=== PATIENT | female | born 1980 | race Asian ===

== ENCOUNTER → 2017-04-15 | Outpatient (CLI) | payer OTHER ==
--- NOTE | 2017-04-16 08:58 | RAD ---
DATE: 04/15/2017 EXAM: DIGITAL SCREEN BILAT W/CAD HISTORY: Screening. Positive family history for breast malignancy is noted. COMPARISON: None. This is baseline study This study was interpreted with the benefit of Computerized Aided Detection (CAD). FINDINGS: Breast Density: DENSE The breast Parenchyma is dense, which could reduce the sensitivity of mammography. Breast parenchyma level density D.. No dominant mass is seen in either breast. There are some benign-appearing calcifications in the left breast. No suspect calcifications are seen in either breast. IMPRESSION: Benign findings. Follow-up examination in one year by BI-RADS CATEGORY: 2 BENIGN FINDING(S) RECOMMENDED FOLLOW-UP: 12M 12 MONTH FOLLOW-UP PQRS compliance statement: Patient information was entered into a reminder system with a target due date 04/15/2018 for the next mammogram. Mammography is a sensitive method for finding small breast cancers, but it does not detect them all and is not a substitute for careful clinical examination. A negative mammogram does not negate a clinically suspicious finding and should not result in delay in biopsying a clinically suspicious abnormality. "Our facility is accredited by the [employer] Mammography Program."
== END | disposition home or self-care (01) ==
LOC: MAMMO 14:14
PROVIDERS: ATTEND Obstetrics & Gynecology
DX: Z12.31 Encounter for screening mammogram for malignant neoplasm of breast (principal); Z80.3 Family history of malignant neoplasm of breast
CPT/HCPCS: G0202; 77067

== ENCOUNTER → 2017-04-16 | Outpatient (CLI) | payer OTHER ==
[2017-04-16 08:18] LABS: BASO # 0.1 x10^3/uL (0.0-0.2); BASO % 1 % (0-3); EOS % 1 % (0-3); HEMATOCRIT 29.4 % (36.0-47.0); HEMOGLOBIN 8.8 g/dL (12.0-15.5); LYMPH # 1.5 x10^3/uL (1.0-4.8); LYMPH % 18 % (24-48); MEAN CORPUSCULAR HEMOGLOBIN 20 pg (25-35); MEAN CORPUSCULAR HGB CONC 30 g/dL (31-37); MEAN CORPUSCULAR VOLUME 66 fL (79-100); MONO % 4 % (0-9); NEUT % 76 % (31-73); PLATELET COUNT 335 x10^3/uL (140-400); RED BLOOD COUNT 4.49 x10^6/uL (3.50-5.40); RED CELL DISTRIBUTION WIDTH 17.2 % (11.5-14.5); WHITE BLOOD COUNT 8.8 x10^3/uL (4.0-11.0)
[2017-04-16 08:43] LABS: ALBUMIN 3.9 g/dL (3.4-5.0); ALBUMIN/GLOBULIN RATIO 0.9 (1.0-1.7); CALCIUM 8.9 mg/dL (8.5-10.1); CREATININE 0.7 mg/dL (0.6-1.0); GFR 95.2; POTASSIUM 4.2 mmol/L (3.5-5.1); TOTAL BILIRUBIN 0.2 mg/dL (0.2-1.0); TOTAL PROTEIN 8.1 g/dL (6.4-8.2)
[2017-04-16 08:44] LABS: CHOLESTEROL/HDL RATIO 3.5
[2017-04-16 08:54] LABS: FREE T4 0.85 ng/dL (0.76-1.46)
== END | disposition home or self-care (01) ==
LOC: LAB 06:17
PROVIDERS: ATTEND Nurse Practitioner Family
DX: Z00.01 Encounter for general adult medical examination with abnormal findings (principal); R14.0 Abdominal distension (gaseous); L30.9 Dermatitis, unspecified; Z79.899 Other long term (current) drug therapy
CPT/HCPCS: 36415; 80053; 80061; 82306; 82607; 84439; 84443; 85025

== ENCOUNTER → 2017-04-21 | Outpatient (CLI) | payer OTHER ==
--- NOTE | 2017-04-21 15:59 | RAD ---
Pelvic ultrasound, 04/21/2017: History: Uterine enlargement Transabdominal and transvaginal scans were obtained. The uterus measures 8.9 x 5.5 x 8.0 cm. The central uterine echo complex measures 10 mm in greatest AP dimension. There is a 4.3 cm heterogeneous mass in the right anterolateral aspect of the uterus. A smaller 3.1 cm mass with similar sonographic characteristics is present inferolaterally on the left. The findings are compatible with uterine fibroids. The left ovary is at the upper limits of normal in size. The right ovary was not visualized. No adnexal mass is seen. A small amount of free fluid is present in the pelvis. IMPRESSION: 1. Two uterine masses are identified compatible with fibroids. 2. Small amount of free fluid in the pelvis.
== END | disposition home or self-care (01) ==
LOC: US 14:53 → EDUNIT# 15:00
PROVIDERS: ATTEND Obstetrics & Gynecology
DX: N92.0 Excessive and frequent menstruation with regular cycle (principal); N85.2 Hypertrophy of uterus; D25.9 Leiomyoma of uterus, unspecified
CPT/HCPCS: 76830; 76856

== ENCOUNTER → 2017-12-03 | Outpatient (CLI) | payer OTHER ==
[2017-12-03 10:14] LABS: ADD MAN DIFF? NO
[2017-12-03 10:20] LABS: BASO # 0.1 x10^3/uL (0.0-0.2); BASO % 1 % (0-3); EOS # 0.1 x10^3/uL (0.0-0.7); EOS % 1 % (0-3); HEMATOCRIT 38.1 % (36.0-47.0); HEMOGLOBIN 12.6 g/dL (12.0-15.5); LYMPH # 1.6 x10^3/uL (1.0-4.8); LYMPH % 18 % (24-48); MEAN CORPUSCULAR HEMOGLOBIN 26 pg (25-35); MEAN CORPUSCULAR HGB CONC 33 g/dL (31-37); MEAN CORPUSCULAR VOLUME 77 fL (79-100); MONO # 0.3 x10^3/uL (0.0-1.1); MONO % 4 % (0-9); NEUT % 77 % (31-73); PLATELET COUNT 298 x10^3/uL (140-400); RED BLOOD COUNT 4.95 x10^6/uL (3.50-5.40); RED CELL DISTRIBUTION WIDTH 17.3 % (11.5-14.5); WHITE BLOOD COUNT 9.1 x10^3/uL (4.0-11.0)
[2017-12-03 10:42] LABS: % SAT IRON 12 % (15-34); IRON,SERUM 53 ug/dL (50-170)
[2017-12-03 10:53] LABS: VITAMIN-B12 315 pg/mL (247-911)
== END | disposition home or self-care (01) ==
LOC: LAB 09:54
DX: D50.8 Other iron deficiency anemias (principal); E53.8 Deficiency of other specified B group vitamins; E55.9 Vitamin D deficiency, unspecified
CPT/HCPCS: 36415; 82306; 82607; 83540; 83550; 85025

== ENCOUNTER → 2017-12-03 | Outpatient (CLI) | payer OTHER | END | disposition home or self-care (01) | LOC: KCIC 14:03 | DX: K59.09 Other constipation (principal); R10.84 Generalized abdominal pain | CPT/HCPCS: 74018 ==

== ENCOUNTER → 2017-12-09 | Outpatient (CLI) | payer OTHER | END | disposition home or self-care (01) | LOC: US 15:31 | DX: K59.09 Other constipation (principal) | CPT/HCPCS: 76700 ==

== ENCOUNTER → 2018-05-25 | Outpatient (CLI) | payer OTHER ==
[2018-05-25 15:06] LABS: BASO # 0.1 x10^3/uL (0.0-0.2); BASO % 1 % (0-3); EOS % 1 % (0-3); HEMATOCRIT 35.8 % (36.0-47.0); HEMOGLOBIN 11.7 g/dL (12.0-15.5); LYMPH # 1.7 x10^3/uL (1.0-4.8); LYMPH % 27 % (24-48); MEAN CORPUSCULAR HEMOGLOBIN 25 pg (25-35); MEAN CORPUSCULAR HGB CONC 33 g/dL (31-37); MEAN CORPUSCULAR VOLUME 77 fL (79-100); MONO # 0.3 x10^3/uL (0.0-1.1); MONO % 5 % (0-9); NEUT # 4.3 x10^3uL (1.8-7.7); NEUT % 67 % (31-73); PLATELET COUNT 355 x10^3/uL (140-400); RED BLOOD COUNT 4.68 x10^6/uL (3.50-5.40); RED CELL DISTRIBUTION WIDTH 14.8 % (11.5-14.5); WHITE BLOOD COUNT 6.4 x10^3/uL (4.0-11.0)
[2018-05-25 16:04] LABS: FREE T4 0.97 ng/dL (0.76-1.46); THYROID STIM HORMONE (TSH) 2.324 uIU/mL (0.358-3.74)
[2018-05-25 16:08] LABS: ALBUMIN 3.8 g/dL (3.4-5.0); TOTAL PROTEIN 8.7 g/dL (6.4-8.2)
[2018-05-27 19:16] LABS: ANA INTERP Negative (.)
[2018-05-28 01:13] LABS: ZINC LEVEL 74 ug/dL (56-134)
== END | disposition home or self-care (01) ==
LOC: LAB 14:36
PROVIDERS: ATTEND Dermatology
DX: L98.8 Other specified disorders of the skin and subcutaneous tissue (principal)
CPT/HCPCS: 36415; 82040; 82306; 82607; 82627; 82728; 82746; 84155; 84410; 84439; 84443; 85025; 86038

== ENCOUNTER → 2019-03-14 | Outpatient (CLI) | payer OTHER ==
--- NOTE | 2019-03-14 16:54 | RAD ---
DATE: 03/14/2019 1:28 PM EXAM: MAMMO STEPHANIE SCREENING BILATERAL HISTORY: routine screening evaluation. COMPARISON: 04/15/17 Bilateral CC and MLO views of the breasts were performed. Bilateral breast tomosynthesis was performed in CC and MLO projections. This study was interpreted with the benefit of Computerized Aided Detection (CAD). FINDINGS: Breast Density: HETERO The breast parenchyma Is heterogeneously dense, which could reduce sensitivity of mammography. Breast parenchyma level C The parenchymal pattern appears stable. Benign calcifications are present. No suspicious masses, microcalcifications or architectural distortion is present to suggest malignancy in either breast. The visualized axillae are unremarkable. IMPRESSION: No mammographic evidence of malignancy. BI-RADS CATEGORY: 2 BENIGN FINDING(S) RECOMMENDED FOLLOW-UP: 12M 12 MONTH FOLLOW-UP Annual screening mammography is recommended, unless clinically indicated sooner based on symptoms or change in physical exam. PQRS compliance statement: Patient information was entered into a reminder system with a target due date for the next mammogram. Mammography is a sensitive method for finding small breast cancers, but it does not detect them all and is not a substitute for careful clinical examination. A negative mammogram does not negate a clinically suspicious finding and should not result in delay in biopsying a clinically suspicious abnormality. "Our facility is accredited by the [employer] Mammography Program."
== END | disposition home or self-care (01) ==
LOC: MAMMO 10:28
PROVIDERS: ATTEND Nurse Practitioner Family
DX: Z12.31 Encounter for screening mammogram for malignant neoplasm of breast (principal); N64.89 Other specified disorders of breast
CPT/HCPCS: 77063; 77067

== ENCOUNTER → 2019-04-28 | Outpatient (CLI) | payer OTHER ==
[~2019-04-28] MED LIST: DOCU-109 PO; GABA300C18 PO; HYDR-3164 PO; IBUP-1060 PO; MINO2.5T12 PO; SPIR1TAB2 PO
[2019-04-28 10:17] LABS: BASO # 0.1 x10^3/uL (0.0-0.2); BASO % 1 % (0-3); EOS # 0.1 x10^3/uL (0.0-0.7); EOS % 1 % (0-3); HEMATOCRIT 29.3 % (36.0-47.0); LYMPH # 1.7 x10^3/uL (1.0-4.8); LYMPH % 25 % (24-48); MEAN CORPUSCULAR HEMOGLOBIN 20 pg (25-35); MEAN CORPUSCULAR HGB CONC 31 g/dL (31-37); MEAN CORPUSCULAR VOLUME 65 fL (79-100); MONO # 0.3 x10^3/uL (0.0-1.1); MONO % 4 % (0-9); NEUT # 4.7 x10^3/uL (1.8-7.7); NEUT % 69 % (31-73); PLATELET COUNT 413 x10^3/uL (140-400); RED BLOOD COUNT 4.47 x10^6/uL (3.50-5.40); RED CELL DISTRIBUTION WIDTH 16.8 % (11.5-14.5); WHITE BLOOD COUNT 6.8 x10^3/uL (4.0-11.0)
[2019-04-28 10:36] LABS: THYROID STIM HORMONE (TSH) 1.513 uIU/mL (0.358-3.74)
[2019-04-28 11:06] LABS: ANISOCYTOSIS SLIGHT; MICROCYTOSIS SLIGHT; PLT ESTIMATE INCREASED (ADEQUATE)
== END | disposition home or self-care (01) ==
LOC: LAB 09:47
PROVIDERS: ATTEND Obstetrics & Gynecology
DX: D25.9 Leiomyoma of uterus, unspecified (principal); N93.8 Other specified abnormal uterine and vaginal bleeding
CPT/HCPCS: 36415; 84439; 84443; 85025

== ENCOUNTER 2019-05-04 08:54 | Inpatient (IN) | payer OTHER ==
[2019-05-04] VITALS (7 sets, daily range): BP systolic 118–131; BP diastolic 70–90
[~2019-05-04] VITALS: Ht 162.6 cm; Wt 70.8 kg
[~2019-05-04 08:54] MED LIST changes: -DOCU-109 PO; -GABA300C18 PO; -IBUP-1060 PO; +IV RINGERS,LACTATED 1000ML 1,000 ML IV SCH; +LIDOCAINE 1% PF 2 ML VIAL. ID PRN; -MINO2.5T12 PO; +ONDANSETRON PF 4 MG/2 ML VIAL. IV PRN; +PROCHLORPERAZINE 10 MG/2 ML VIAL. IV PRN; -SPIR1TAB2 PO; +fentaNYL PF VIAL 100 MCG/2 ML VIAL IV PRN
[2019-05-04] MEDS ORDERED: SPIR1TAB2 PO (09:24)
[2019-05-04] MEDS ORDERED: MINO2.5T12 PO (09:26)
[2019-05-04] MEDS ORDERED: LIDOCAINE 2% PF 5 ML VIAL. ONE (09:56)
[2019-05-04] MEDS ORDERED: DEXAMETHASONE SOD PHOS 4 MG/ML VIAL ONE ×2 (09:56→10:39)
[2019-05-04] MEDS ORDERED: ROCURONIUM 50 MG/5 ML VIAL. ONE (09:56)
[2019-05-04] MEDS ORDERED: ONDANSETRON PF 4 MG/2 ML VIAL. ONE (09:56)
[2019-05-04] MEDS ORDERED: PROPOFOL 20 ML IV ONE (09:56)
[2019-05-04 09:57] LABS: BASO # 0.1 x10^3/uL (0.0-0.2); BASO % 1 % (0-3); EOS % 1 % (0-3); HEMATOCRIT 30.2 % (36.0-47.0); HEMOGLOBIN 9.3 g/dL (12.0-15.5); LYMPH # 1.5 x10^3/uL (1.0-4.8); LYMPH % 22 % (24-48); MEAN CORPUSCULAR HEMOGLOBIN 20 pg (25-35); MEAN CORPUSCULAR HGB CONC 31 g/dL (31-37); MEAN CORPUSCULAR VOLUME 66 fL (79-100); MONO # 0.2 x10^3/uL (0.0-1.1); MONO % 3 % (0-9); NEUT # 4.8 x10^3/uL (1.8-7.7); NEUT % 73 % (31-73); PLATELET COUNT 370 x10^3/uL (140-400); RED BLOOD COUNT 4.61 x10^6/uL (3.50-5.40); RED CELL DISTRIBUTION WIDTH 17.3 % (11.5-14.5); WHITE BLOOD COUNT 6.6 x10^3/uL (4.0-11.0)
[2019-05-04] MEDS ORDERED: fentaNYL PF VIAL 100 MCG/2 ML VIAL ONE ×3 (09:57→11:54)
[2019-05-04] MEDS ORDERED: MIDAZOLAM HCL/PF 2 MG/2 ML VIAL. ONE (09:58)
[2019-05-04] MEDS ORDERED: SCOPOLAMINE 1.5MG PATCH. TD ONE (10:00)
[2019-05-04] MEDS ORDERED: KETOROLAC 30 MG/ML VIAL. ONE (10:52)
[2019-05-04] MEDS ORDERED: FAMOTIDINE 20 MG/2 ML VIAL ONE (10:52)
[2019-05-04] MEDS ORDERED: GLYCOPYRROLATE 1 MG/5 ML VIAL. ONE (11:24)
[2019-05-04] MEDS ORDERED: NEOSTIGMINE METHYLSULFATE 5 MG/5 ML SYRINGE. ONE (11:24)
[2019-05-04] MEDS ORDERED: SEVOFLURANE 61 TO 120 MINUTES. IH ONE (11:42)
[2019-05-04] MEDS ORDERED: PROCHLORPERAZINE 10 MG/2 ML VIAL. ONE (11:54)
--- NOTE | 2019-05-04 12:01 | PDOC ---
BRIEF OPERATIVE NOTE Date: May 04, 2019 Pre-Op Diagnosis 1. Menorrhagia 2. Fibroids 3. Dysmenorrhea Post-Op Diagnosis Same Procedure Performed Open Laparotomy Myomectomy Surgeon Dr. Lacey Instructor Weaving Paper Cup Machine Operator: Celesscipriano Anesthesia Type: General Blood Loss 150 ml Specimens Obtained myoma x 3 Findings enlarged fibroid uterus; nml fallopian tubes and ovaries nae Complications none Operative Note see dictation GOPI LACEY Jr, MD May 04, 2019 12:01
[2019-05-04] MEDS ORDERED: PROCHLORPERAZINE 10 MG/2 ML VIAL. IV PRN (12:15)
[2019-05-04] MEDS ORDERED: CALCIUM CARBONATE 500 MG TAB.CHEW PO PRN (12:15)
[2019-05-04] MEDS ORDERED: diphenhydrAMINE 50 MG/ML VIAL IV PRN (12:15)
[2019-05-04] MEDS ORDERED: diphenhydrAMINE HCL 25 MG CAPSULE PO PRN (12:15)
[2019-05-04] MEDS ORDERED: DEXTROSE 50% 25 GM / 50ML DISP.SYRIN. IV PRN (12:15)
[2019-05-04] MEDS ORDERED: ZOLPIDEM 5 MG TABLET. PO PRN (12:15)
[2019-05-04] MEDS ORDERED: 0.9 % SODIUM CHLORIDE 10 ML DISP.SYRIN. IV PRN (12:15)
[2019-05-04] MEDS: fentaNYL PF VIAL 100 MCG/2 ML VIAL IV PRN ×2 (12:27→12:38)
--- NOTE | 2019-05-04 12:27 | OP ---
DATE OF SURGERY: 05/04/2019 PREOPERATIVE DIAGNOSES: 1. Menorrhagia. 2. Fibroids. 3. Dysmenorrhea. POSTOPERATIVE DIAGNOSES: 1. Menorrhagia. 2. Fibroids. 3. Dysmenorrhea. PROCEDURES: Open laparotomy and myomectomy. SURGEON: Gpoi Lacey MD CURING PRESS OPERATOR: Phu. ANESTHESIA: GETA. ESTIMATED BLOOD LOSS: 150 mL. COMPLICATIONS: None. FINDINGS: Enlarged fibroid uterus, normal fallopian tubes, normal ovaries bilaterally. The myomas ranged from 4 cm to 8 cm in size. SUMMARY: A 38-year-old female with long history of menorrhagia, dysmenorrhea, and fibroid uterus, unresponsive to medical treatment. The patient was counseled on risks, benefits and expectations of open laparotomy for myomectomy. The patient voiced clear understanding to proceed. DESCRIPTION OF PROCEDURE: The patient was taken to surgery suite and placed in the dorsal supine position. She was prepped with ChloraPrep and draped in sterile fashion. After adequate anesthesia, a Pfannenstiel skin incision was made with scalpel down to and through the fascia. Fascia was extended laterally using curved Peace scissors. The superior edge of fascia was grasped with two Ángela clamps and dissected free of the abdominal rectus muscles using blunt dissection along with Bovie cautery. The same process took place inferiorly. The peritoneum was grasped with 2 hemostats and entered sharply with Metzenbaum scissors. This incision was extended superiorly as well as inferiorly. The Lennox ring retractor was placed. The uterus was palpated and able to elevate up to the laparotomy incision site. The uterus contained multiple fibroids, the largest was about 8 cm size. The second largest was about 4-5 cm size. Then, a third set of fibroids were about 2 cm size. [place] was used to grasp the round ligament and single tooth tenaculum was used to grasp the largest of the fibroids which was 8 cm fibroid. Bovie cautery was utilized to make a transverse incision across the superior edge of the fibroid, in which the myometrium was peeled away from the fibroid using sharp dissection with Metzenbaum scissors as well as blunt dissection until the fibroid was removed. The fibroid did involve the myometrial layer in which the incision was closed in a double layer fashion using 2-0 Vicryl suture in a running fashion. The second fibroid was the 2 cm size. The fibroid was removed with Kahlil clamps. This was also at the incision site of the first leiomyoma removal, in which she was incorporated in the closure. The third fibroid was about 5 cm size in the left broad ligament in which the left broad ligament was taken down layer by layer using sharp dissection along with Bovie cautery until the fibroid was visualized and shelled out using blunt dissection along with sharp dissection. This was about a 5 cm size fibroid. The left broad ligament was reapproximated and was just adjacent to the uterus and not involved in the uterus and was reapproximated using 2-0 Vicryl suture in a running fashion. The areas were hemostatic. Interceed was placed over the hysterotomy incision that involved the largest myomectomy of 8 cm size. The ovaries and fallopian tubes appeared normal bilaterally. The Lennox ring retractor was removed. The peritoneum was reapproximated using 1 Vicryl suture in running fashion. Fascia was reapproximated using 0 Vicryl suture in running fashion. Skin was reapproximated using 4-0 Vicryl suture in subcuticular manner. The patient tolerated the procedure well and was taken to recovery room in stable condition. Sponge and needle count correct x 3. GOPI LACEY MD DR: FABBY/jaime JOB#: [id number] / [id number]
[2019-05-04] MEDS ORDERED: MORPHINE SULFATE 2 MG/ML VIAL. ONE ×2 (12:45→12:59)
[2019-05-04] MEDS: MORPHINE SULFATE 2 MG/ML VIAL. IV PRN ×4 (12:47→13:19)
[2019-05-04] MEDS ORDERED: HYDROmorphone 2 MG/ML VIAL ONE (13:12)
[2019-05-04] MEDS: HYDROmorphone 2 MG/ML VIAL IV PRN ×4 (13:19→14:05)
[2019-05-04 13:23] LABS: PLT ESTIMATE ADEQUATE (ADEQUATE)
[2019-05-04 13:25] LABS: ANISOCYTOSIS PRESENT; HYPOCHROMIA MARKED; MICROCYTOSIS MARKED
[2019-05-04] MEDS: GABAPENTIN 300 MG CAPSULE. PO SCH ×2 (14:00→21:04)
[2019-05-04] MEDS: KETOROLAC 30 MG/ML VIAL. IV PRN ×2 (15:17→22:05)
[2019-05-04] MEDS: oxyCODONE/APAP 5/325 1 TAB TABLET PO PRN (17:18)
[2019-05-04] MEDS: ONDANSETRON PF 4 MG/2 ML VIAL. IV PRN (18:42)
[2019-05-04] MEDS ORDERED: MORPHINE SULFATE 4 MG/ML VIAL. IM ONE (19:45)
[2019-05-04] MEDS: SIMETHICONE 80 MG TAB.CHEW PO PRN (19:55)
--- NOTE | 2019-05-04 20:09 | NUR ---
6mg morphine administration was administered IV not IM, order should of been for IV, incorrectly entered.
--- NOTE | 2019-05-05 01:25 | NUR ---
05/05/19 at 2209 wrong box checked, pt was awake during rounds.
[2019-05-05] MEDS: KETOROLAC 30 MG/ML VIAL. IV PRN ×3 (04:13→21:56)
[2019-05-05] MEDS: GABAPENTIN 300 MG CAPSULE. PO SCH ×3 (05:53→21:56)
[2019-05-05] MEDS: oxyCODONE/APAP 7.5/325 1 TAB TABLET PO PRN ×3 (05:54→16:23)
[2019-05-05 07:40] LABS: BASO % 0 % (0-3); EOS % 0 % (0-3); HEMATOCRIT 25.9 % (36.0-47.0); HEMOGLOBIN 7.8 g/dL (12.0-15.5); LYMPH # 1.3 x10^3/uL (1.0-4.8); LYMPH % 13 % (24-48); MEAN CORPUSCULAR HEMOGLOBIN 20 pg (25-35); MEAN CORPUSCULAR HGB CONC 30 g/dL (31-37); MEAN CORPUSCULAR VOLUME 66 fL (79-100); MONO # 0.6 x10^3/uL (0.0-1.1); MONO % 6 % (0-9); NEUT # 8.4 x10^3/uL (1.8-7.7); NEUT % 82 % (31-73); PLATELET COUNT 303 x10^3/uL (140-400); RED BLOOD COUNT 3.91 x10^6/uL (3.50-5.40); RED CELL DISTRIBUTION WIDTH 17.2 % (11.5-14.5); WHITE BLOOD COUNT 10.3 x10^3/uL (4.0-11.0)
[2019-05-05 09:47] VITALS: BP 102/58
[2019-05-05] MEDS: ONDANSETRON PF 4 MG/2 ML VIAL. IV PRN (10:42)
[2019-05-05] MEDS: SIMETHICONE 80 MG TAB.CHEW PO PRN (13:13)
--- NOTE | 2019-05-05 15:05 | PDOC ---
SURGICAL PROGRESS NOTE Subjective Pt. feeling well. Pain better controlled. Discussed IV iron treatment for anemia. Vital Signs Vital Signs Date Time Temp Pulse Resp B/P (MAP) Pulse Ox O2 Delivery O2 Flow Rate FiO2 05/05/19 11:45 18 97 Room Air 05/04/19 23:03 98.3 97 122/83 (96) 98.3 97 05/04/19 12:40 10. I&O Intake and Output 05/05/19 07:00 Intake Total 1620 ml Output Total 2050 ml Balance -430 ml Intake Oral 420 ml IV Total 1200 ml Output Urine Total 1900 ml Estimated Blood Loss 150 ml General: Alert, Oriented X3, Cooperative HEENT: Atraumatic Lungs: Clear to auscultation Heart: Regular rate Abdomen: Normal bowel sounds, Soft, No masses, Other (Incision site: clean, dry and intact) Neuro: Normal gait Psych/Mental Status: Mental status NL Labs Laboratory Tests Test 05/04/19 09:08 05/04/19 09:35 05/05/19 06:45 Bedside Urine HCG, Qualitative Hcg negative (Negative) White Blood Count 6.6 x10^3/uL (4.0-11.0) 10.3 x10^3/uL (4.0-11.0) Red Blood Count 4.61 x10^6/uL (3.50-5.40) 3.91 x10^6/uL (3.50-5.40) Hemoglobin 9.3 g/dL (12.0-15.5) 7.8 g/dL (12.0-15.5) Hematocrit 30.2 % (36.0-47.0) 25.9 % (36.0-47.0) Mean Corpuscular Volume 66 fL (79-100) 66 fL (79-100) Mean Corpuscular Hemoglobin 20 pg (25-35) 20 pg (25-35) Mean Corpuscular Hemoglobin Concent 31 g/dL (31-37) 30 g/dL (31-37) Red Cell Distribution Width 17.3 % (11.5-14.5) 17.2 % (11.5-14.5) Platelet Count 370 x10^3/uL (140-400) 303 x10^3/uL (140-400) Neutrophils (%) (Auto) 73 % (31-73) 82 % (31-73) Lymphocytes (%) (Auto) 22 % (24-48) 13 % (24-48) Monocytes (%) (Auto) 3 % (0-9) 6 % (0-9) Eosinophils (%) (Auto) 1 % (0-3) 0 % (0-3) Basophils (%) (Auto) 1 % (0-3) 0 % (0-3) Neutrophils # (Auto) 4.8 x10^3/uL (1.8-7.7) 8.4 x10^3/uL (1.8-7.7) Lymphocytes # (Auto) 1.5 x10^3/uL (1.0-4.8) 1.3 x10^3/uL (1.0-4.8) Monocytes # (Auto) 0.2 x10^3/uL (0.0-1.1) 0.6 x10^3/uL (0.0-1.1) Eosinophils # (Auto) 0.0 x10^3/uL (0.0-0.7) 0.0 x10^3/uL (0.0-0.7) Basophils # (Auto) 0.1 x10^3/uL (0.0-0.2) 0.0 x10^3/uL (0.0-0.2) Platelet Estimate Adequate (ADEQUATE) Large Platelets Few Giant Platelets Occ Hypochromasia Marked Anisocytosis Present Microcytosis Marked Laboratory Tests Test 05/05/19 06:45 White Blood Count 10.3 x10^3/uL (4.0-11.0) Red Blood Count 3.91 x10^6/uL (3.50-5.40) Hemoglobin 7.8 g/dL (12.0-15.5) Hematocrit 25.9 % (36.0-47.0) Mean Corpuscular Volume 66 fL (79-100) Mean Corpuscular Hemoglobin 20 pg (25-35) Mean Corpuscular Hemoglobin Concent 30 g/dL (31-37) Red Cell Distribution Width 17.2 % (11.5-14.5) Platelet Count 303 x10^3/uL (140-400) Neutrophils (%) (Auto) 82 % (31-73) Lymphocytes (%) (Auto) 13 % (24-48) Monocytes (%) (Auto) 6 % (0-9) Eosinophils (%) (Auto) 0 % (0-3) Basophils (%) (Auto) 0 % (0-3) Neutrophils # (Auto) 8.4 x10^3/uL (1.8-7.7) Lymphocytes # (Auto) 1.3 x10^3/uL (1.0-4.8) Monocytes # (Auto) 0.6 x10^3/uL (0.0-1.1) Eosinophils # (Auto) 0.0 x10^3/uL (0.0-0.7) Basophils # (Auto) 0.0 x10^3/uL (0.0-0.2) Assessment/Plan A: POD#1 s/p Open Lap Myomectomy Anemia P: Continue post op care. Increase ambulation. IV iron treatment for anemia. GOPI MAHER Jr, MD May 05, 2019 15:05
[2019-05-05] MEDS ORDERED: IRON SUCROSE COMPLEX 200 MG in IV NORMAL SALINE 100ML 100 ML IV ONE (16:00)
[2019-05-05 20:38] VITALS: BP 99/58
[2019-05-05 23:34] VITALS: BP 99/64
[2019-05-06] MEDS: oxyCODONE/APAP 7.5/325 1 TAB TABLET PO PRN (03:23)
[2019-05-06 03:24] VITALS: BP 105/64
[2019-05-06] MEDS: GABAPENTIN 300 MG CAPSULE. PO SCH ×3 (05:45→21:50)
[2019-05-06 08:00] VITALS: BP 110/70
[2019-05-06] MEDS: ONDANSETRON PF 4 MG/2 ML VIAL. IV PRN ×2 (08:26→17:10)
[2019-05-06] MEDS: oxyCODONE/APAP 5/325 1 TAB TABLET PO PRN ×3 (08:27→17:10)
[2019-05-06] MEDS: FERROUS SULFATE 325 MG TABLET. PO SCH ×2 (09:00→21:00)
--- NOTE | 2019-05-06 09:00 | PDOC ---
SURGICAL PROGRESS NOTE Subjective Pt. doing well per nursing. Pain better controlled. She completed 1 dose venofer and will receive a second dose tomorrow prior to discharge home. Vital Signs Vital Signs Date Time Temp Pulse Resp B/P (MAP) Pulse Ox O2 Delivery O2 Flow Rate FiO2 05/06/19 08:27 96 Room Air 05/06/19 04:33 14 05/06/19 03:24 97.6 76 105/64 (78) 97.6 I&O Intake and Output 05/06/19 07:00 Intake Total 1270 ml Output Total 1200 ml Balance 70 ml Intake Oral 1160 ml IV Total 110 ml Output Urine Total 1200 ml # Voids 2 PATIENT HAS A AGUDELO: No General: Alert, Oriented X3, Cooperative HEENT: Atraumatic Lungs: Clear to auscultation Heart: Regular rate Abdomen: Normal bowel sounds, Soft, No masses, Other (Incision site: intact) Neuro: Normal gait Psych/Mental Status: Mental status NL Labs Laboratory Tests Test 05/04/19 09:08 05/04/19 09:35 05/05/19 06:45 Bedside Urine HCG, Qualitative Hcg negative (Negative) White Blood Count 6.6 x10^3/uL (4.0-11.0) 10.3 x10^3/uL (4.0-11.0) Red Blood Count 4.61 x10^6/uL (3.50-5.40) 3.91 x10^6/uL (3.50-5.40) Hemoglobin 9.3 g/dL (12.0-15.5) 7.8 g/dL (12.0-15.5) Hematocrit 30.2 % (36.0-47.0) 25.9 % (36.0-47.0) Mean Corpuscular Volume 66 fL (79-100) 66 fL (79-100) Mean Corpuscular Hemoglobin 20 pg (25-35) 20 pg (25-35) Mean Corpuscular Hemoglobin Concent 31 g/dL (31-37) 30 g/dL (31-37) Red Cell Distribution Width 17.3 % (11.5-14.5) 17.2 % (11.5-14.5) Platelet Count 370 x10^3/uL (140-400) 303 x10^3/uL (140-400) Neutrophils (%) (Auto) 73 % (31-73) 82 % (31-73) Lymphocytes (%) (Auto) 22 % (24-48) 13 % (24-48) Monocytes (%) (Auto) 3 % (0-9) 6 % (0-9) Eosinophils (%) (Auto) 1 % (0-3) 0 % (0-3) Basophils (%) (Auto) 1 % (0-3) 0 % (0-3) Neutrophils # (Auto) 4.8 x10^3/uL (1.8-7.7) 8.4 x10^3/uL (1.8-7.7) Lymphocytes # (Auto) 1.5 x10^3/uL (1.0-4.8) 1.3 x10^3/uL (1.0-4.8) Monocytes # (Auto) 0.2 x10^3/uL (0.0-1.1) 0.6 x10^3/uL (0.0-1.1) Eosinophils # (Auto) 0.0 x10^3/uL (0.0-0.7) 0.0 x10^3/uL (0.0-0.7) Basophils # (Auto) 0.1 x10^3/uL (0.0-0.2) 0.0 x10^3/uL (0.0-0.2) Platelet Estimate Adequate (ADEQUATE) Large Platelets Few Giant Platelets Occ Hypochromasia Marked Anisocytosis Present Microcytosis Marked Assessment/Plan A: POD#2 s/p Open Lap Myomectomy Anemia P: Continue post op care. GOPI MAHER Jr, MD May 06, 2019 09:00
[2019-05-06 12:00] VITALS: BP 111/68
[2019-05-06] MEDS: SIMETHICONE 80 MG TAB.CHEW PO PRN (13:48)
[2019-05-06 17:17] VITALS: BP 102/67
[2019-05-06] MEDS: ACETAMINOPHEN 500 MG TABLET PO PRN (21:50)
[2019-05-06 22:05] VITALS: BP 108/68
[2019-05-07 04:40] VITALS: BP 114/71
[2019-05-07] MEDS: ACETAMINOPHEN 500 MG TABLET PO PRN (04:40)
[2019-05-07] MEDS: GABAPENTIN 300 MG CAPSULE. PO SCH (06:11)
[2019-05-07] MEDS: FERROUS SULFATE 325 MG TABLET. PO SCH (09:00)
--- NOTE | 2019-05-07 09:17 | PDOC3 ---
Admit Dx: Fibroids, Menorrhagia, Dysmenorrhea D/c Dx: Same Admit Date: 05/04/19 D/c Date: 05/07/19 Procedure: Open Laparotomy Myomectomy Surgeon: Dr. Lacey Senior Radiation Protection Technician: [facility] Course: Pt. underwent open laparotomy for myomectomy. She did well for recovery and progressed to regular diet, ambulation and flatus. Diet: regular D/c F/u: F/u in 1 week. GOPI LACEY Jr, MD May 07, 2019 09:17
[2019-05-07] MEDS ORDERED: DOCU-109 PO (09:19)
[2019-05-07] MEDS ORDERED: IBUP-1060 PO (09:19)
[2019-05-07] MEDS ORDERED: GABA300C18 PO (09:19)
--- NOTE | 2019-05-07 09:20 | DISCH ---
DISCHARGE INSTRUCTIONS Condition on Discharge Condition on Discharge: Stable Activity After Discharge Activity Instructions for Disc: Activity as tolerated Lifting Instructions after Dis: No heavy lifting Driving Instructions after Dis: Do not drive (x 1 week) Diet after Discharge Diet after Discharge: Regular Contacting the DRJacinto after DC Call your doctor for: Concerns you may have Follow-Up Follow up with: Dr. Lacey in 1 week. GOPI LACEY Jr, MD May 07, 2019 09:20
[2019-05-07] MEDS ORDERED: IRON SUCROSE COMPLEX 200 MG in IV NORMAL SALINE 100ML 100 ML IV ONE (10:00)
[2019-05-07] MEDS ORDERED: IBUPROFEN 400 MG TABLET. PO PRN (11:00)
[2019-05-07 11:53] VITALS: BP 121/74
--- NOTE | 2019-05-07 12:10 | NUR ---
Pt. PO Iron non-administered r/t to pt. receiving an iron IV infusion. Will continue to monitor.
[2019-05-07 13:00] VITALS: BP 118/72
--- NOTE | 2019-05-07 13:37 | NUR ---
Discharge Note: [facility] Discharge instructions and discharge home medications reviewed with Patient and a copy given. All questions have been answered and understanding verbalized. The following instructions and handouts were given: Myomectomy and Myomectomy after care. Discontinued lines and drains: 20g IV in left FA removed. Tip intact. No complications. Patient discharged to home with self-care via in private vehicle. Follow up appointments reviewed.
--- NOTE | 2019-05-09 12:07 | PATHOLOGY ---
[facility] Accession Number: [id number] . 01 Material submitted: . uterus - MYOMAS . 01 Clinical history: . Fibroids and dysmenorrhea. . 02 Diagnosis: "Myomas", myomectomy: - Consistent with leiomyomas, largest measuring 7.1 cm grossly. . (CLW:mml; 05/09/2019) [facility] 05/09/2019 0925 Local . 02 Electronically signed: . Cassandra Melendez MD, Pathologist NPI- [id number] . 01 Gross description: . Received in formalin labeled "Low, Mark, myomas" are three donnelly-white soft tissue nodules weighing in aggregate 150 g and measuring 2.1 x 1.3 x 0.8 cm, 5.1 x 4.5 x 3.5 cm, and 7.1 x 6.5 x 4.9 cm. The external surfaces are smooth and the nodules are sectioned to reveal donnelly-white whorled cut surfaces without hemorrhage or necrosis. Life Skills Coordinator Volunteer sections are submitted in cassettes A1-A6, with two sections in each cassette. ([facility]; 05/04/2019) [facility] 05/04/2019 1844 Local . 02 Pathologist provided ICD-10: D25.9 . 02 CPT . 660752 Specimen Comment: A courtesy copy of this report has been sent to [phone], [phone] Specimen Comment: [phone] Specimen Comment: Report sent to / DR GIVNES Performed at: 01 [facility] [address], [place], [place] [id number] MD Jefferson Esparza MD Phone: [phone] Performed at: [address] [facility] [id number] MD Juan Huffman MD Phone: [phone]
== END 2019-05-07 13:20 | disposition home or self-care (01) | DRG 743 ==
LOC: EEVIPCON 08:54 → OPSVCIP 08:54 → 3 NORTH 14:37
PROVIDERS: ADMIT Obstetrics & Gynecology; ATTEND Obstetrics & Gynecology
PROC: 0UB90ZZ Excision of Uterus, Open Approach (ICD-10-PCS; principal; 2019-05-04 10:30)
DX: D25.9 Leiomyoma of uterus, unspecified (principal); D64.9 Anemia, unspecified; N92.0 Excessive and frequent menstruation with regular cycle; N94.6 Dysmenorrhea, unspecified
CPT/HCPCS: 36415; 81025; 85025; 86850; 86900; 86901; 88305; A7015; C1781; J0696; J1100; J1170; J1756; J1885; J2001; J2250; J2270; J2405; J2704; J2710; J3010; J3490; J7120; G0378

== ENCOUNTER → 2021-01-29 | Outpatient (CLI) | payer OTHER ==
[~2021-01-29] MED LIST changes: +DOCU-109 PO; +GABA300C18 PO; +IBUP-1060 PO; -IV RINGERS,LACTATED 1000ML 1,000 ML IV SCH; -LIDOCAINE 1% PF 2 ML VIAL. ID PRN; +MINO2.5T12 PO; -ONDANSETRON PF 4 MG/2 ML VIAL. IV PRN; -PROCHLORPERAZINE 10 MG/2 ML VIAL. IV PRN; +SPIR1TAB2 PO; -fentaNYL PF VIAL 100 MCG/2 ML VIAL IV PRN
[2021-01-29 08:40] LABS: HEMATOCRIT 33.9 % (36.0-47.0); HEMOGLOBIN 10.4 g/dL (12.0-15.5); RED BLOOD COUNT 4.94 x10^6/uL (3.50-5.40); WHITE BLOOD COUNT 7.8 x10^3/uL (4.0-11.0)
[2021-01-29 09:08] LABS: ALBUMIN 3.7 g/dL (3.4-5.0); ALBUMIN/GLOBULIN RATIO 0.8 (1.0-1.7); CALCIUM 8.7 mg/dL (8.5-10.1); CREATININE 0.8 mg/dL (0.6-1.0); GFR 79.9; POTASSIUM 4.3 mmol/L (3.5-5.1); TOTAL BILIRUBIN 0.2 mg/dL (0.2-1.0); TOTAL PROTEIN 8.2 g/dL (6.4-8.2)
[2021-01-29 09:09] LABS: CHOLESTEROL/HDL RATIO 5.3
[2021-01-29 09:15] LABS: FREE T4 0.83 ng/dL (0.76-1.46); THYROID STIM HORMONE (TSH) 2.384 uIU/mL (0.358-3.74)
== END ==
LOC: LAB 08:16
PROVIDERS: ATTEND Nurse Practitioner Family
DX: Z13.9 Encounter for screening, unspecified (principal); E55.9 Vitamin D deficiency, unspecified; D50.9 Iron deficiency anemia, unspecified; L65.9 Nonscarring hair loss, unspecified
CPT/HCPCS: 36415; 80053; 80061; 82306; 82607; 82746; 83540; 83550; 84439; 84443; 85027

== ENCOUNTER 2021-02-11 12:40 | Emergency (ER) | payer OTHER ==
[~2021-02-11] VITALS: Ht 160 cm; Wt 77.3 kg
[2021-02-11 14:08] LABS: BASO # 0.1 x10^3/uL (0.0-0.2); BASO % 1 % (0-3); EOS # 0.1 x10^3/uL (0.0-0.7); EOS % 1 % (0-3); HEMATOCRIT 31.6 % (36.0-47.0); HEMOGLOBIN 9.9 g/dL (12.0-15.5); LYMPH % 22 % (24-48); MEAN CORPUSCULAR HEMOGLOBIN 21 pg (25-35); MEAN CORPUSCULAR HGB CONC 31 g/dL (31-37); MEAN CORPUSCULAR VOLUME 68 fL (79-100); MONO # 0.3 x10^3/uL (0.0-1.1); MONO % 3 % (0-9); NEUT # 6.7 x10^3/uL (1.8-7.7); NEUT % 73 % (31-73); PLATELET COUNT 401 x10^3/uL (140-400); RED BLOOD COUNT 4.63 x10^6/uL (3.50-5.40); RED CELL DISTRIBUTION WIDTH 17.3 % (11.5-14.5); WHITE BLOOD COUNT 9.1 x10^3/uL (4.0-11.0)
[2021-02-11 14:16] LABS: CREATININE 0.8 mg/dL (0.6-1.0); GFR 79.9; POTASSIUM 3.9 mmol/L (3.5-5.1)
--- NOTE | 2021-02-11 14:16 | RAD ---
EXAM: AP View of the chest DATE: 02/11/2021 1:58 PM INDICATION: Reason: Short of breath / Spl. Instructions: / History: COMPARISON: No Prior FINDINGS: The heart is not enlarged. Mediastinal and hilar contours are normal. No focal parenchymal airspace opacity. No pleural effusion or pneumothorax. IMPRESSION: 1. No radiographic evidence for acute cardiopulmonary process. Electronically signed by: Lan Montgomery MD (02/11/2021 2:14 PM) [id number]
--- NOTE | 2021-02-11 14:18 | PHYS DOC ---
Past Medical History Additional Past Medical Histor: fibroids, anemia, Past Surgical History: Other Additional Past Surgical Histo: fibroidectomy General Adult EDM: Chief Complaint: OTHER COMPLAINTS HPI: HPI: Patient is a 40 year old female who presents emergency department chief complaint of worried that her iron deficient anemia is getting worse. Patient states that she was supposed to have an iron infusion today however somehow her appointment was messed up so she decided to come to the emergency department to see if she could get her iron infusion here. Patient denies any other physical complaints or physical concerns. Review of Systems: Review of Systems: 14 body systems of review of systems have been reviewed. See HPI for pertinent positives and negative responses, otherwise all other systems are negative, nonpertinent or noncontributory. Constitutional: Negative except as outlined in HPI above. Skin: Negative except as outlined in HPI above. Eyes: Negative except as outlined in HPI above. HENT: Negative except as outlined in HPI above. Respiratory: Negative except as outlined in HPI above. Cardiovascular: Negative except as outlined in HPI above. GI: Negative except as outlined in HPI above. : Negative except as outlined in HPI above. Musculoskeletal: Negative except as outlined in HPI above. Integument: Negative except as outlined in HPI above. Neurologic: Negative except as outlined in HPI above. Endocrine: Negative except as outlined in HPI above. Lymphatic: Negative except as outlined in HPI above. Psychiatric: Negative except as outlined in HPI above. Heart Score: C/O Chest Pain: No Risk Factors: Risk Factors: DM, Current or recent (<one month) smoker, HTN, HLP, family history of CAD, obesity. Risk Scores: Score 0 - 3: 2.5% MACE over next 6 weeks - Discharge Home Score 4 - 6: 20.3% MACE over next 6 weeks - Admit for Clinical Observation Score 7 - 10: 72.7% MACE over next 6 weeks - Early Invasive Strategies Allergies: Allergies: Allergies Coded Allergies Type Severity Reaction Last Updated Verified No Known Drug Allergies 04/05/19 No Physical Exam: PE: Constitutional: Well developed, well nourished, no acute distress, non-toxic appearance. [] HENT: Normocephalic, atraumatic, bilateral external ears normal, oropharynx moist, no oral exudates, nose normal. [] Eyes: PERRLA, EOMI, conjunctiva normal, no discharge. [] Neck: Normal range of motion, no tenderness, supple, no stridor. [] Cardiovascular:Heart rate regular rhythm, no murmur [] Lungs & Thorax: Bilateral breath sounds clear to auscultation [] Abdomen: Bowel sounds normal, soft, no tenderness, no masses, no pulsatile masses. [] Skin: Warm, dry, no erythema, no rash. [] Back: No tenderness, no CVA tenderness. [] Extremities: No tenderness, no cyanosis, no clubbing, ROM intact, no edema. [] Neurologic: Alert and oriented X 3, normal motor function, normal sensory function, no focal deficits noted. [] Psychologic: Affect normal, judgement normal, mood normal. [] Current Patient Data: Labs: Laboratory Tests Test 02/11/21 13:20 White Blood Count 9.1 x10^3/uL Red Blood Count 4.63 x10^6/uL Hemoglobin 9.9 g/dL Hematocrit 31.6 % Mean Corpuscular Volume 68 fL Mean Corpuscular Hemoglobin 21 pg Mean Corpuscular Hemoglobin Concent 31 g/dL Red Cell Distribution Width 17.3 % Platelet Count 401 x10^3/uL Neutrophils (%) (Auto) 73 % Lymphocytes (%) (Auto) 22 % Monocytes (%) (Auto) 3 % Eosinophils (%) (Auto) 1 % Basophils (%) (Auto) 1 % Neutrophils # (Auto) 6.7 x10^3/uL Lymphocytes # (Auto) 2.0 x10^3/uL Monocytes # (Auto) 0.3 x10^3/uL Eosinophils # (Auto) 0.1 x10^3/uL Basophils # (Auto) 0.1 x10^3/uL Platelet Estimate Increased Large Platelets Few Giant Platelets Occ Hypochromasia Mod Anisocytosis Slight Microcytosis Marked Sodium Level 139 mmol/L Potassium Level 3.9 mmol/L Chloride Level 104 mmol/L Carbon Dioxide Level 25 mmol/L Anion Gap 10 Blood Urea Nitrogen 9 mg/dL Creatinine 0.8 mg/dL Estimated GFR (Cockcroft-Gault) 79.9 BUN/Creatinine Ratio 11 Glucose Level 89 mg/dL Calcium Level 9.0 mg/dL Iron Level 23 ug/dL Total Iron Binding Capacity 496 ug/dL Iron Saturation 5 % Total Bilirubin 0.3 mg/dL Aspartate Amino Transf (AST/SGOT) 13 U/L Alanine Aminotransferase (ALT/SGPT) 18 U/L Alkaline Phosphatase 87 U/L Troponin I Quantitative < 0.017 ng/mL Total Protein 8.2 g/dL Albumin 4.0 g/dL Albumin/Globulin Ratio 1.0 Current Medications Medications (Trade) Dose Ordered Sig/Josafat Route PRN Reason Start Time Stop Time Status Last Admin Dose Admin Sodium Chloride 400 ml @ 400 mls/hr 1X ONCE IV 02/11/21 15:00 02/11/21 14:55 DC Laboratory Tests Test 02/11/21 13:20 White Blood Count 9.1 x10^3/uL (4.0-11.0) Red Blood Count 4.63 x10^6/uL (3.50-5.40) Hemoglobin 9.9 g/dL (12.0-15.5) L Hematocrit 31.6 % (36.0-47.0) L Mean Corpuscular Volume 68 fL (79-100) L Mean Corpuscular Hemoglobin 21 pg (25-35) L Mean Corpuscular Hemoglobin Concent 31 g/dL (31-37) Red Cell Distribution Width 17.3 % (11.5-14.5) H Platelet Count 401 x10^3/uL (140-400) H Neutrophils (%) (Auto) 73 % (31-73) Lymphocytes (%) (Auto) 22 % (24-48) L Monocytes (%) (Auto) 3 % (0-9) Eosinophils (%) (Auto) 1 % (0-3) Basophils (%) (Auto) 1 % (0-3) Neutrophils # (Auto) 6.7 x10^3/uL (1.8-7.7) Lymphocytes # (Auto) 2.0 x10^3/uL (1.0-4.8) Monocytes # (Auto) 0.3 x10^3/uL (0.0-1.1) Eosinophils # (Auto) 0.1 x10^3/uL (0.0-0.7) Basophils # (Auto) 0.1 x10^3/uL (0.0-0.2) Platelet Estimate Pending Sodium Level 139 mmol/L (136-145) Potassium Level 3.9 mmol/L (3.5-5.1) Chloride Level 104 mmol/L (98-107) Carbon Dioxide Level 25 mmol/L (21-32) Anion Gap 10 (6-14) Blood Urea Nitrogen 9 mg/dL (7-20) Creatinine 0.8 mg/dL (0.6-1.0) Estimated GFR (Cockcroft-Gault) 79.9 BUN/Creatinine Ratio 11 (6-20) Glucose Level 89 mg/dL (70-99) Calcium Level 9.0 mg/dL (8.5-10.1) Total Bilirubin Pending Aspartate Amino Transferase (AST) Pending Alanine Aminotransferase (ALT) Pending Alkaline Phosphatase Pending Total Protein Pending Albumin Pending Albumin/Globulin Ratio Pending Laboratory Tests 02/11/21 13:20 Laboratory Tests 02/11/21 13:20 Vital Signs: Vital Signs Date Time Temp Pulse Resp B/P (MAP) Pulse Ox O2 Delivery O2 Flow Rate FiO2 02/11/21 13:05 97.7 79 16 164/103 (87) 100 Room Air 97.7 EKG: EKG: EKG performed at 1411 by ED nursing staff shows a normal sinus rhythm without e ctopy heart rate 75 bpm, NC interval 0.166, QTc interval 0.431, no acute STEMI, no ACS, no acute ischemia appreciated, EKG interpreted by ED attending physician Dr. Soriano. Radiology/Procedures: Radiology/Procedures: [] Course & Med Decision Making: Course & Med Decision Making Pertinent Labs and Imaging studies reviewed. (See chart for details) 40-year-old female, vital signs reviewed, presents emergency department concerning her iron deficiency anemia problems. Will order baseline labs to compare to labs drawn approximately 2 and half weeks ago. Patient amenable to this plan. Patient's lab work shows improvements of her iron deficiency anemia levels. Patient's hemoglobin slightly lower at 9.9. Discussed findings with patient, strict follow-up with primary care for ongoing evaluation and management of her iron deficiency anemia. Patient reports her iron levels must be getting better because of her recent diet change increasing iron rich foods. Patient is amenable to ED discharge planning and wishes to go home. Discussed with the patient all findings and diagnostic testing as well as the need to follow-up with their primary care provider for further evaluation and treatment or return to the ED if any new or worsening symptoms. Strict return precautions were also discussed at length, the patient voiced understanding and agreement with the discharge planning. The patient was nontoxic in appearance, in no apparent distress, and hemodynamically stable at the time of disposition. Dragon Disclaimer: Dragon Disclaimer: This electronic medical record was generated, in whole or in part, using a voice recognition dictation system. Departure Departure Impression: Primary Impression: Iron deficiency anemia Qualified Codes: D50.9 - Iron deficiency anemia, unspecified Disposition: HOME / SELF CARE / HOMELESS Condition: GOOD Referrals: NATALY SHRESTHA APRN (PCP) Patient Instructions: Iron Deficiency Anemia Additional Instructions: You were seen today for symptoms related to your iron deficiency anemia. You had indicated you were trying to secure an appointment for an iron infusion. Your lab work was drawn and evaluated today, in comparison to your previous results from 3 weeks ago, your iron levels seem to be getting better as evidenced by improving numbers in comparison. As we discussed at length, please keep your appointment with your primary care provider as you may require ongoing evaluation of your H&H levels. Please return to the emergency department for worsening symptoms or other concerns. Thank you for visiting our Emergency Department. It was a pleasure taking care of you today in the emergency department and we appreciate you trusting us with your care. If any additional problems come up don't hesitate to return to visit us. Please follow up with your primary care provider so they can plan additional care if needed and know about the problem that you had. If symptoms worsen come back to the Emergency Department. Any concerning symptoms that start such as chest pain, shortness of air, weakness or numbness on one side of the body, running high fevers or any other concerning symptoms return to the ER. EMERGENCY DEPARTMENT GENERAL DISCHARGE INSTRUCTIONS Thank you for coming to [facility] Emergency Department (ED) today and trusting us with you care. We trust that you had a positive experience in our Emergency Department. If you wish to speak to the department management, you may call the Director at [phone]. YOUR FOLLOW UP INSTRUCTIONS ARE FOLLOWS: 1. Do you have a private Doctor? If you do not have a private doctor, please ask for a resource list of physicians or clinics that may be able to assist you with follow up care. 2. The Emergency Physicain has interpreted your x-rays. The X-Ray specialist will also review them. If there is a change in the findings, you will be notified in 48 hours when at all possible. 3. A lab test or culture has been done, your results will be reviewed and you will be notified if you need a change in treatment. ADDITIONAL INSTRUCTIONS AND INFORMATION: 1. Your care today has been supervised by a physician who is specially trained in emergency care. Many problems require more than one evaluation for a complete diagnosis and treatment. We recommend that you schedule your follow up appointment as recommended to ensure complete treatment of you illness or injury. If you are unable to obtain follow up care and continue to have a problem, or if your condition worsens, we recommend that you return to the ED. 2. We are not able to safely determine your condition over the phone nor are we able to give sound medical advice over the phone. For these safety reasons, if you call for medical advice we will ask you to come to the ED for further evaluation. 3. If you have any questions regarding these discharge instructions please call the ED at [phone]. SAFETY INFORMATION: In the interest of safety, wellness, and injury prevention; we encourage you to wear your sealbelt, if you smoke; quite smoking, and we encourage family to use a protective helmet for bicycling and other sporting events that present an increased risk for head injury. IF YOUR SYMPTOMS WORSEN OR NEW SYMPTOMS DEVELOP, OR YOU HAVE CONCERNS ABOUT YOUR CONDITION; OR IF YOUR CONDITION WORSENS WHILE YOU ARE WAITING FOR YOUR FOLLOW UP APPOINTMENT; EITHER CONTACT YOUR PRIMARY CARE DOCTOR, THE PHYSICIAN WHOSE NAME AND NUMBER YOU WERE GIVEN, OR RETURN TO THE ED IMMEDIATELY. DONNA BAEZ APRN Feb 11, 2021 14:18
[2021-02-11 14:22] LABS: TOTAL BILIRUBIN 0.3 mg/dL (0.2-1.0); TOTAL PROTEIN 8.2 g/dL (6.4-8.2)
[2021-02-11 14:47] LABS: ANISOCYTOSIS SLIGHT; HYPOCHROMIA MOD; MICROCYTOSIS MARKED; PLT ESTIMATE INCREASED (ADEQUATE)
[2021-02-11] MEDS ORDERED: IV NORMAL SALINE 500ML BAG 400 ML IV ONE (15:00)
[2021-02-11 15:43] VITALS: BP 134/83
== END 2021-02-11 16:10 | disposition home or self-care (01) ==
LOC: ER 12:40
DX: D50.9 Iron deficiency anemia, unspecified (principal)
CPT/HCPCS: 36415; 71045; 80053; 83540; 83550; 84484; 85025; 93005; 99285-25

== ENCOUNTER → 2021-02-21 | Outpatient (CLI) | payer OTHER ==
[2021-02-11 15:43] VITALS: BP 134/83
[2021-02-21 09:08] LABS: BASO # 0.1 x10^3/uL (0.0-0.2); BASO % 1 % (0-3); EOS # 0.1 x10^3/uL (0.0-0.7); EOS % 1 % (0-3); HEMATOCRIT 29.9 % (36.0-47.0); HEMOGLOBIN 9.3 g/dL (12.0-15.5); LYMPH # 1.2 x10^3/uL (1.0-4.8); LYMPH % 17 % (24-48); MEAN CORPUSCULAR HEMOGLOBIN 21 pg (25-35); MEAN CORPUSCULAR HGB CONC 31 g/dL (31-37); MEAN CORPUSCULAR VOLUME 68 fL (79-100); MONO # 0.3 x10^3/uL (0.0-1.1); MONO % 4 % (0-9); NEUT # 5.3 x10^3/uL (1.8-7.7); NEUT % 78 % (31-73); PLATELET COUNT 276 x10^3/uL (140-400); RED BLOOD COUNT 4.37 x10^6/uL (3.50-5.40); WHITE BLOOD COUNT 6.9 x10^3/uL (4.0-11.0)
[2021-02-21 09:35] LABS: FREE T4 0.81 ng/dL (0.76-1.46); THYROID STIM HORMONE (TSH) 2.239 uIU/mL (0.358-3.74)
[2021-02-21 11:40] LABS: PLT ESTIMATE ADEQUATE (ADEQUATE)
[2021-02-21 11:41] LABS: ANISOCYTOSIS PRESENT; HYPOCHROMIA MOD
[2021-02-21 11:42] LABS: MICROCYTOSIS MARKED
== END ==
LOC: ONCLAB 08:48
PROVIDERS: ATTEND Internal Medicine Hematology & Oncology
DX: D50.0 Iron deficiency anemia secondary to blood loss (chronic) (principal)
CPT/HCPCS: 36415; 82728; 84439; 84443; 85025

== ENCOUNTER → 2021-02-26 | Outpatient (CLI) | payer OTHER ==
[2021-02-11 15:43] VITALS: BP 134/83
[2021-02-28 16:11] LABS: GLIA IGA 2 units (0-19); GLIA IGG 1 units (0-19); TRANSGLUTAMINASE IGA AB <2 U/mL (0-3); TRANSGLUTAMINASE IGG AB 6 U/mL (0-5)
== END ==
LOC: ONCLAB 08:54
PROVIDERS: ATTEND Physician Assistant
DX: D50.0 Iron deficiency anemia secondary to blood loss (chronic) (principal)
CPT/HCPCS: 36415; 83516

== ENCOUNTER → 2021-03-26 | Outpatient (CLI) | payer OTHER ==
[2021-03-26 08:53] LABS: BASO # 0.1 x10^3/uL (0.0-0.2); BASO % 1 % (0-3); EOS % 1 % (0-3); HEMATOCRIT 37.7 % (36.0-47.0); HEMOGLOBIN 12.2 g/dL (12.0-15.5); LYMPH # 1.2 x10^3/uL (1.0-4.8); LYMPH % 17 % (24-48); MEAN CORPUSCULAR HEMOGLOBIN 26 pg (25-35); MEAN CORPUSCULAR HGB CONC 32 g/dL (31-37); MEAN CORPUSCULAR VOLUME 79 fL (79-100); MONO # 0.1 x10^3/uL (0.0-1.1); MONO % 2 % (0-9); NEUT # 5.9 x10^3/uL (1.8-7.7); NEUT % 80 % (31-73); PLATELET COUNT 249 x10^3/uL (140-400); RED BLOOD COUNT 4.76 x10^6/uL (3.50-5.40); RED CELL DISTRIBUTION WIDTH 26.9 % (11.5-14.5); WHITE BLOOD COUNT 7.3 x10^3/uL (4.0-11.0)
[2021-03-26 11:17] LABS: PLT ESTIMATE ADEQUATE (ADEQUATE)
== END ==
LOC: ONCLAB 08:38
PROVIDERS: ATTEND Physician Assistant
DX: D50.0 Iron deficiency anemia secondary to blood loss (chronic) (principal)
CPT/HCPCS: 36415; 82728; 83540; 83550; 85025

== ENCOUNTER → 2021-05-07 | Outpatient (CLI) | payer OTHER ==
[~2021-05-07] MED LIST changes: +LACT1CAP37 PO
[2021-05-07 09:00] LABS: BASO # 0.1 x10^3/uL (0.0-0.2); BASO % 1 % (0-3); EOS # 0.1 x10^3/uL (0.0-0.7); EOS % 1 % (0-3); HEMATOCRIT 38.2 % (36.0-47.0); LYMPH # 1.8 x10^3/uL (1.0-4.8); LYMPH % 23 % (24-48); MEAN CORPUSCULAR HEMOGLOBIN 28 pg (25-35); MEAN CORPUSCULAR HGB CONC 34 g/dL (31-37); MEAN CORPUSCULAR VOLUME 82 fL (79-100); MONO # 0.3 x10^3/uL (0.0-1.1); MONO % 4 % (0-9); NEUT # 5.7 x10^3/uL (1.8-7.7); NEUT % 71 % (31-73); PLATELET COUNT 279 x10^3/uL (140-400); RED BLOOD COUNT 4.67 x10^6/uL (3.50-5.40); RED CELL DISTRIBUTION WIDTH 21.2 % (11.5-14.5)
[2021-05-07 10:18] LABS: PLT ESTIMATE ADEQUATE (ADEQUATE)
[2021-05-07 10:20] LABS: ANISOCYTOSIS PRESENT
== END ==
LOC: ONCLAB 08:39
PROVIDERS: ATTEND Internal Medicine Hematology & Oncology
DX: D50.0 Iron deficiency anemia secondary to blood loss (chronic) (principal)
CPT/HCPCS: 36415; 82728; 83540; 83550; 85025

== ENCOUNTER → 2021-05-15 | Day surgery (SDC) | payer OTHER ==
[~2021-05-15] VITALS: Ht 162.6 cm; Wt 75.4 kg
[~2021-05-15] MED LIST changes: +IV RINGERS,LACTATED 1000ML 1,000 ML IV SCH; +PROPOFOL 10 MG/ML (20ML) VIAL. IV ONE
[2021-05-15 08:37] VITALS: BP 158/101
[2021-05-15 10:18] VITALS: BP 149/81
--- NOTE | 2021-05-20 17:27 | PATHOLOGY ---
[facility] Accession Number: [id number] . 01 Material submitted: . PART A: small bowel - SMALL BOWEL BIOPSY PART B: stomach - GASTRIC ANTRUM BIOPSY PART C: esophagus - DISTAL ESOPHAGUS BIOPSY. Modifiers: distal PART D: ileum - TERMINAL ILEUM BIOPSY PART E: colon - RIGHT COLON BIOPSY. Modifiers: right PART F: colon - LEFT COLON BIOPSY. Modifiers: left . 01 Clinical history: . IRON DEFICIENCY ANEMIA EGD, COLONOSCOPY . 02 Diagnosis: A. Small bowel biopsy: - Duodenal mucosa with focal villous blunting and gastric foveolar metaplasia, consistent with nodular peptic duodenitis. . B. Stomach "antrum", biopsy: - Gastric antral mucosa with chronic active gastritis. - Negative for intestinal metaplasia, dysplasia, and malignancy. - Negative for Helicobacter pylori. - Fragment of benign duodenal tissue with villous blunting and gastric foveolar metaplasia, consistent with nodular peptic duodenitis. . C. Esophagus "distal", biopsy: - Esophageal squamous and gastric cardia mucosa with features of reflux esophagitis. - Negative for intestinal metaplasia, dysplasia, and malignancy. . D. Small bowel "terminal ileum", biopsy: - Ileal mucosa without significant pathologic alteration. . E. Large bowel "right colon", biopsy: - Large bowel mucosa without significant pathologic alteration. . F. Large bowel "left colon", biopsy: - Large bowel mucosa without significant pathologic alteration. . (BENJI:sameera; 05/19/2021) MBR 05/20/2021 1610 Local . 02 Electronically signed: . Radha Gaines MD, Pathologist NPI- [id number] . 01 Gross description: . A. Received in formalin labeled "Mark Low, small bowel biopsy" are multiple donnelly-brown soft tissue fragments measuring in aggregate 0.8 x 0.4 x 0.1 cm. The specimen is submitted entirely in A1. . B. Received in formalin labeled "Mark Low, gastric antrum biopsy" are multiple donnelly-brown soft tissue fragments measuring in aggregate 1.2 x 0.4 x 0.1 cm. The specimen is submitted entirely in B1. . C. Received in formalin labeled "Mark Low, distal esophagus biopsy" are multiple donnelly-brown soft tissue fragments measuring in aggregate 0.6 x 0.4 x 0.1 cm. The specimen is submitted entirely in C1. . D. Received in formalin labeled "Mark Low, terminal ileum" is a fragment of donnelly-brown soft tissue measuring 0.4 x 0.3 x 0.1 cm. The specimen is submitted entirely in D1. . E. Received in formalin labeled "Mark Low, right colon biopsy" are multiple donnelly-brown soft tissue fragments measuring in aggregate 0.9 x 0.4 x 0.1 cm. The specimen is submitted entirely in E1. . F. Received in formalin labeled "Mark Low, left colon biopsy" are multiple donnelly-brown soft tissue fragments measuring in aggregate 0.7 x 0.3 x 0.1 cm. The specimen is submitted entirely in F1. [place] [place] 05/17/2021[place] [facility] 05/17/2021 1106 Local . 02 Pathologist provided ICD-10: K29.50, K31.9, D64.9 . 02 CPT . 390143, 929892, 558719, 610080, [id number], [id number] Specimen Comment: A courtesy copy of this report has been sent to [phone], [phone] Specimen Comment: [id number] Specimen Comment: Report sent to / DR SHRESTHA Performed at: 01 [facility] [address], [place], [place] [id number] MD Marcso Moon MD Phone: [phone] Performed at: 02 [facility] [address] [place], [place] [id number] MD Sushil Rojas MD Phone: [phone]
== END | disposition home or self-care (01) ==
LOC: ENDOS 08:12
PROVIDERS: ATTEND Internal Medicine Gastroenterology
DX: D50.9 Iron deficiency anemia, unspecified (principal); K64.0 First degree hemorrhoids; K29.50 Unspecified chronic gastritis without bleeding; K21.00 Gastro-esophageal reflux disease with esophagitis, without bleeding; K31.89 Other diseases of stomach and duodenum; K63.89 Other specified diseases of intestine; E66.9 Obesity, unspecified; Z79.899 Other long term (current) drug therapy; Z98.890 Other specified postprocedural states
CPT/HCPCS: 43239; 45380; 81025; J2704

== ENCOUNTER → 2021-06-13 | Outpatient (CLI) | payer OTHER ==
[2021-05-15 10:18] VITALS: BP 149/81
[~2021-06-13] MED LIST changes: -IV RINGERS,LACTATED 1000ML 1,000 ML IV SCH; -PROPOFOL 10 MG/ML (20ML) VIAL. IV ONE
[2021-06-13 22:12] LABS: IMMUNOGLOBULIN A 169 mg/dL (87-352)
[2021-06-16 16:12] LABS: TRANSGLUTAMINASE IGA AB <2 U/mL (0-3)
== END ==
LOC: LAB 11:16
PROVIDERS: ATTEND Internal Medicine Gastroenterology
DX: D50.9 Iron deficiency anemia, unspecified (principal)
CPT/HCPCS: 36415; 82784; 83516

== ENCOUNTER → 2021-06-17 | Outpatient (CLI) | payer OTHER ==
[2021-05-15 10:18] VITALS: BP 149/81
[~2021-06-17] MED LIST changes: +IOHEXOL 240 MG/ML 50ML VIAL. PO ONE; +IOHEXOL 300 MG/ML 100ML VIAL. IV ONE
--- NOTE | 2021-06-17 11:33 | KCIC ---
EXAM: Abdomen and pelvis CT with intravenous contrast. HISTORY: Anemia. Bloating. TECHNIQUE: Computed tomographic images of the abdomen and pelvis were obtained following the administ ration of intravenous contrast. Multiplanar reformatting was performed. *One or more of the following individualized dose reduction techniques were utilized for this examina tion: 1. Automated exposure control. 2. Adjustment of the mA and/or kV according to patient size. 3. Use of iterative reconstruction technique. COMPARISON: None. FINDINGS: Evaluation of the lower thorax demonstrates no infiltrate or pleural effusion. The heart is normal in size. There are 3 enhancing lesions within the right hepatic lobe measuring 1.9 cm, 1.6 cm and 1.7 cm. The gallbladder, pancreas, spleen, adrenal glands and kidneys are unremarkable. There is no appendicitis. There is no bowel obstruction. There is moderate colonic stool. There is no abnormal bowel wall thickening. The bladder is unremarkable. The uterus is unremarkable. There are m ultiple bilateral ovarian follicles and there is a small amount of pelvic free fluid, within physiolo gic limits for a premenopausal female. The aorta is normal in caliber. There is no lymphadenopathy. There is a transitional lumbosacral segm ent. 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 IMPRESSION: 1. No acute abdominal or pelvic finding. 2. 3 enhancing lesions within the right hepatic lobe. These may be visible sonographically. Alternati vely, these can be characterized with a liver protocol MRI. Electronically signed by: Karina Troy MD (06/17/2021 11:31 AM) [id number]
== END ==
LOC: KCIC CT 08:17
PROVIDERS: ATTEND Internal Medicine Gastroenterology
DX: K76.9 Liver disease, unspecified (principal); D50.9 Iron deficiency anemia, unspecified
CPT/HCPCS: 74177; Q9966; Q9967

== ENCOUNTER → 2021-06-18 | Outpatient (CLI) | payer OTHER ==
[2021-05-15 10:18] VITALS: BP 149/81
[~2021-06-18] MED LIST changes: -IOHEXOL 240 MG/ML 50ML VIAL. PO ONE; -IOHEXOL 300 MG/ML 100ML VIAL. IV ONE
[2021-06-18 15:22] LABS: BASO # 0.1 x10^3/uL (0.0-0.2); BASO % 1 % (0-3); EOS # 0.1 x10^3/uL (0.0-0.7); EOS % 1 % (0-3); HEMATOCRIT 37.8 % (36.0-47.0); HEMOGLOBIN 12.9 g/dL (12.0-15.5); LYMPH % 22 % (24-48); MEAN CORPUSCULAR HEMOGLOBIN 29 pg (25-35); MEAN CORPUSCULAR HGB CONC 34 g/dL (31-37); MEAN CORPUSCULAR VOLUME 85 fL (79-100); MONO # 0.4 x10^3/uL (0.0-1.1); MONO % 4 % (0-9); NEUT # 6.3 x10^3/uL (1.8-7.7); NEUT % 72 % (31-73); PLATELET COUNT 274 x10^3/uL (140-400); RED BLOOD COUNT 4.47 x10^6/uL (3.50-5.40); RED CELL DISTRIBUTION WIDTH 12.7 % (11.5-14.5); WHITE BLOOD COUNT 8.8 x10^3/uL (4.0-11.0)
== END ==
LOC: ONCLAB 14:57
PROVIDERS: ATTEND Internal Medicine Hematology & Oncology
DX: D50.0 Iron deficiency anemia secondary to blood loss (chronic) (principal)
CPT/HCPCS: 36415; 82728; 83540; 83550; 85025

== ENCOUNTER → 2021-07-24 | Outpatient (CLI) | payer OTHER ==
[2021-05-15 10:18] VITALS: BP 149/81
[~2021-07-24] MED LIST changes: +GADOTERATE 7.5 MMOL/15ML VIAL. IVP ONE
--- NOTE | 2021-07-24 11:36 | KCIC ---
EXAMINATION: MRI abdomen with and without IV contrast. INDICATION:41 years, Female, liver lesions seen on CT exam. Further evaluation. TECHNIQUE: Multiplanar multisequence MRI of the abdomen was performed. COMPARISON: CT dated 06/17/2021. FINDINGS: LOWER CHEST: Unremarkable. ABDOMEN: Normal size and morphology of the liver with homogeneous enhancement. Diffuse hepatic steatosis. Ther e are multiple arterial enhancing lesions in both hepatic lobes demonstrate persistent enhancement on subsequent postcontrast sequences without contrast washout. These lesions appear isointense to mildl y bright on T2-weighted images, as follow: * 2.5 cm lesion in posterior hepatic segment 4A (series 11 image 27). * 1.6 cm lesion in hepatic segment 7 adjacent to the IVC (series 11 image 20). * 1.3 cm lesion in hepatic segment 8 (series 11 image 29). * 0.9 cm lesion in hepatic segment 6 (series 11 image 37). * 1.3 cm lesion in hepatic segment 5 (series 11 image 42). * 0.8 cm lesion in hepatic segment 4b/5 (series 11 image 34). These lesions are essentially unchanged since prior CT exam, with allowing differences in modality. High T1 signal intensity seen within the gallbladder, likely reflecting concentrated bile versus bili mere sludge. No biliary ductal dilation. Normal spleen, pancreas, adrenal glands and kidneys. No bowel dilation. No lymphadenopathy in the abdomen by size criteria. Normal caliber abdominal aorta. Mesent afia arteries and portal veins are patent. No ascites. MUSCULOSKELETAL STRUCTURES: No suspicious osseous lesion. IMPRESSION: 1. Multiple hyperenhancing bilobar hepatic lesions, differential includes focal nodular hyperplasias versus less likely hepatic adenomas. Recommend 3-6 months follow-up with MRI liver using hepatobilia ry contrast (Eovist). 2. Hepatic steatosis. Electronically signed by: Kely Rodriguez MD (07/24/2021 11:34 AM) [facility]
== END ==
LOC: KCIC MRI 08:03
PROVIDERS: ATTEND Internal Medicine Gastroenterology
DX: K76.89 Other specified diseases of liver (principal); K76.0 Fatty (change of) liver, not elsewhere classified; R93.89 Abnormal findings on diagnostic imaging of other specified body structures
CPT/HCPCS: 74183; A9575